=== PATIENT | male | born 1945 | race Caucasian/White ===

== ENCOUNTER 2025-01-08 11:12 | Emergency (ER) | payer OTHER, SELFPAY ==
[2025-01-08 11:20] VITALS: BP 176/99; PULSE 70; RESP 16; TEMP 36.2; O2SAT 98; BMI 28.0
--- NOTE | 2025-01-08 11:42 | ED_ITS ---
<Statement entered by Shaheed Candelario, DO - 01/08/25 18:51> Dr. Candelario co sign statement I was available for consultation during this patient's emergency department visit. This chart is signed by myself for administrative purposes only. I did not have direct contact with the patient during this visit. They were seen independently by the APC HPI - Extremity Problem General Chief complaint: Extremity Problem,Nontraumatic Stated complaint: Wants US on inside of Right forearm Time Seen by Provider: 01/08/25 11:28 Source: patient Mode of arrival: Ambulatory History of Present Illness HPI Narrative: Mr. Benítez is a very pleasant 79-year-old male with a past medical history of type 2 diabetes, hypertension, recent prostatectomy 12/25-12/30 now with suprapubic catheter who presents to the emergency department for growing right forearm mass since surgery. Patient states he has had a small, marble-sized mass in his right forearm ever since he was 7 years old after he sustained a laceration to this area from glass and had it repaired with joie. However after his surgery about 2 weeks ago and having an IV in the right wrist, patient states that this mass has been getting much larger and more painful. Is now about the size of a golf ball. His prostate surgeon recommended he get an ultrasound. He denies fevers, chest pain, shortness of breath, nausea, vomiting, redness of the arm. States that his only pain is of the mass and not the surrounding forearm. He is right-hand dominant. States that when he works at his desk he does frequently hit this bump in the desk which is painful. He does have a suprapubic catheter in place however he is voiding spontaneously, not using the catheter. Related Data Home Medications Medication Instructions Recorded Confirmed tamsulosin 0.4 mg capsule (Flomax) 0.4 mg PO QDAY ##0 12/28/16 12/07/18 Allergies Allergy/AdvReac Type Severity Reaction Status Date / Time penicillin G [PENICILLIN G] Allergy Mild hives Verified 12/07/18 10:35 Sulfa (Sulfonamide Allergy Mild flu like Verified 12/07/18 10:35 Antibiotics) symptoms [SULFA (SULFONAMIDE ANTIBIOTICS)] Review of Systems Review of Systems ROS Unobtainable: All systems reviewed & are unremarkable except as noted in HPI and below Patient History Social History Smoking Status: Former smoker Smoking Status: Former smoker Exam Narrative Exam Narrative: GENERAL: 79 year old patient appears stated age. Well-developed patient, in no acute distress. HEAD: Atraumatic. Normocephalic. CARDIOVASCULAR: Regular rate and rhythm. RESPIRATORY: ?Nonlabored respirations. ?Speaking in clear, full sentences. ?Clear to auscultation. GASTROINTESTINAL: Abdomen soft, non-tender, nondistended. Capped suprapubic catheter in place. EXTREMITIES: On the palmar aspect of the medial right forearm there is an a pproximately 3 cm circular firm mobile mass below the skin. No overlying erythema or skin changes. No fluctuance. NEURO: AOx3. ?Clear speech. ?Moves all 4 extremities appropriately. SKIN: No rash or erythema of visible areas Initial Vital Signs Initial Vital Signs: Vital Signs Temperature 97.2 F L 01/08/25 11:20 Pulse Rate 70 01/08/25 11:20 Respiratory Rate 16 01/08/25 11:20 Blood Pressure 176/99 H 01/08/25 11:20 Pulse Oximetry 98 01/08/25 11:20 Oxygen Delivery Method Room Air 01/08/25 11:20 Course Orders Ordered: ED Orders 01/08/25 11:41 US periph venous up extrem rt Stat Consultations Consultation #1: Discussed case with [facility] vascular surgeon Dr. Martel. States there is no intervention needed for patient's thrombosed/aneurysmal vein at this time, can treat discomfort supportively with compression, pain relief, suspect that recent IV may have caused some dilation of the chronic aneurysm. Time: 14:56 Vital Signs Vital signs: Vital Signs - 8 hr 01/08/25 11:20 01/08/25 15:51 Temperature 97.2 F L Pulse Rate 70 62 Respiratory Rate 16 18 Blood Pressure 176/99 H 156/87 H Pulse Oximetry 98 100 Oxygen Delivery Method Room Air Room Air MDM - Extremity (Nontraumatic) Medical Records Attestation: I reviewed the patient's medical records. Medical records narrative: Reviewed prior family practice visit 12/07/2018 Imaging Data Right Upper Extremity Peripheral Vascular US: Radiologist's Impression: PROCEDURE: US PERIPH VENOUS UP EXTREM RT INDICATIONS: R forearm mass/swelling; recent surgery IV TECHNIQUE: Real-time imaging, as well as color and pulse Doppler interrogation, was performed of the upper extremity deep veins from the inferior neck to the antecubital fossa. COMPARISON: None. FINDINGS: The internal jugular vein, visualized portions of the subclavian vein, axillary, and brachial veins are free of intraluminal thrombus. Where p hysically possible, the veins are normally compressible. Color and pulse Doppler demonstrate normal intraluminal flow, with expected phasicity and pulsatility. Additional scanning of the cephalic and basilic veins of the superficial system demonstrates thrombosed and dilated mid basilic vein at patient's reported area of palpable lump and measures 2.3 x 1.1 x 2 cm in size. More distal right basilic vein is also thrombosed. IMPRESSION: 1. No evidence of DVT in visualized right upper extremity veins. 2. Thrombosed and aneurysmal appearance of mid to distal right basilic vein as above. Dictated by: Christian Lizama M.D. on 01/08/2025 at 13:19 Approved by: Christian Lizama M.D. on 01/08/2025 at 13:20 [facility] Narrative Medical decision making narrative: 79-year-old male with a past medical history of type 2 diabetes, hypertension, recent prostatectomy 12/25-12/30 ([facility] urology - Dr. Rodriguez?) now with sup rapubic catheter who presents to the emergency department for growing right forearm mass since surgery. Differential diagnosis includes but is not limited to scar tissue, cyst, mass, lipoma, abscess, DVT, superficial venous thrombosis, etc. On exam the patient is in no acute distress, nontoxic appearing, vital signs appropriate except for elevated blood pressure which patient attributes to ?whi te coat hypertension?. On his palmar medial right forearm he has a circumscribed, mobile firm mass just below the skin. States this was about the size of a marble all of his life and just became enlarged and tender after recent surgery with being a puncture in the wrist. Surgeon request ultrasound. We will proceed with both venous and soft tissue ultrasound. Right upper extremity ultrasound reveals thrombosed and aneurysmal appearance of the mid to distal right basilic vein, measuring 2.3 x 1.1 x 2 cm in size. Discussed case with you vascular surgeon Dr. Martel who does not recommend any emergent intervention, recommend supportive care such as compression. Discussed all results with the patient's, discussed strict ED return precautions follow up with PCP. He verbalized understanding of all information agreeable to plan. Provided with cody wrap. Stable for discharge home. 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 Benítez, Thank you for coming to the emergency department. Your ultrasound reveals a thrombosed and aneurysmal appearance of the mid to distal right basilic vein. I spoke with [facility] vascular surgeon, Dr. Martel, who just recommend supportive care at this time with compression, pain medication if needed. Please follow up with your primary care provider but return to the emergency department if you develop any new or worsening symptoms such as redness, streaking redness, fevers, chest pain, shortness of breath or increased swelling. Please follow up with your primary care doctor within the next 2-3 days for ER follow-up. (If you do not have a PCP you can call [phone]. ?to schedule an appointment with an [facility] Primary Care Provider) IF YOU DEVELOP ANY NEW OR WORSENING SYMPTOMS, RETURN TO THE ER! Please read the attached instructions, they highlight more specific treatments and interventions for you at home. Thank you for letting me participate in your care, Brenda Ac PA-C Prescriptions: No Action tamsulosin [Flomax] 0.4 MG capsule,extended release 24hr 0.4 mg PO QDAY Qty: 0 Referrals: Sarah Ruff MD [Primary Care Provider] - Stand Alone Forms: Patient Portal/API/Survey
[2025-01-08 15:51] VITALS: BP 156/87; PULSE 62; RESP 18; O2SAT 100
== END 2025-01-08 15:50 | disposition home or self-care (01) ==
PROVIDERS: Emergency Provider Physician Assistant; PCP Family Medicine
DX: I82.711 Chronic embolism and thrombosis of superficial veins of right upper extremity (principal); I86.8 Varicose veins of other specified sites
CPT/HCPCS: 93971; 99282; 99283